=== PATIENT | female | born 1935 | race Caucasian/White ===

== ENCOUNTER 2017-11-24 20:34 | Inpatient (IN) | payer MEDICARE, OTHER ==
[2017-11-24 23:09] LABS: ADD MAN DIFF? NO
[2017-11-24 23:11] LABS: BASOPHILS % 0.5 % (0.0-2.0); EOSINOPHILS % 0.7 % (0.0-7.0); HEMATOCRIT 34.8 % (37.0-47.0); HEMOGLOBIN 11.8 g/dl (12.0-16.0); LYMPHOCYTES # 1.2 10^3/ul (0.8-2.9); LYMPHOCYTES % 28.6 % (15.0-51.0); MEAN CORPUSCULAR HEMOGLOBIN 32.1 pg (29.0-33.0); MEAN CORPUSCULAR HGB CONC 33.9 g/dl (32.0-37.0); MEAN CORPUSCULAR VOLUME 94.6 fl (82.0-101.0); MEAN PLATELET VOLUME 10.4 fl (7.4-10.4); MONOCYTE # 0.4 10^3/ul (0.3-0.9); MONOCYTES % 9.3 % (0.0-11.0); NEUTROPHIL # 2.6 10^3/ul (1.6-7.5); NEUTROPHILS % 60.7 % (39.0-77.0); PLATELET COUNT 171 10^3/UL (140-415); RED BLOOD COUNT 3.68 10^6/ul (4.20-5.40); RED CELL DISTRIBUTION WIDTH 13.6 % (11.5-14.5)
[2017-11-24 23:11] LABS: WHITE BLOOD COUNT 4.3 10^3/ul (4.8-10.8)
[2017-11-24] MEDS: ONDANSETRON 4 MG INJ IV (23:35)
[2017-11-24] MEDS: morphine 4 MG/ML VIAL IV (23:35)
[2017-11-24] MEDS: SOD CHLORIDE 0.9% 500 ML IV (23:35)
[2017-11-24 23:36] LABS: LACTIC ACID 1.5 mmol/L (0.5-2.0)
[2017-11-24 23:38] LABS: ALANINE AMINOTRANSFERASE 365 IU/L (13-69); ALBUMIN 4.3 g/dl (3.3-4.9); ALBUMIN/GLOBULIN RATIO 1.19; ALKALINE PHOSPHATASE 324 IU/L (42-121); ANION GAP 14 (8-16); ASPARTATE AMINO TRANSFERASE 567 IU/L (15-46); BILIRUBIN,INDIRECT 0.4 mg/dl (0-1.1); BILIRUBIN,TOTAL 0.4 mg/dl (0.2-1.3); BLOOD UREA NITROGEN 12 mg/dl (7-20); CARBON DIOXIDE 28 mmol/L (21-31); CHLORIDE 105 mmol/L (97-110); CREATININE 0.66 mg/dl (0.44-1.00); GLUCOSE 117 mg/dl (70-220); LIPASE 199 U/L (23-300); POTASSIUM 3.3 mmol/L (3.5-5.1); SODIUM 144 mmol/L (135-144); TOTAL PROTEIN 7.9 g/dl (6.1-8.1)
[2017-11-25 00:14] LABS: ADD UMIC YES; UR AMORPHOUS CRYSTAL FEW /HPF (NONE SEEN); UR ASCORBIC ACID NEGATIVE (NEGATIVE); UR BACTERIA FEW /HPF (NONE SEEN); UR BILIRUBIN (Dip) NEGATIVE (NEGATIVE); UR BLOOD (Dip) NEGATIVE (NEGATIVE); UR CLARITY CLOUDY (CLEAR); UR COLOR YELLOW (YELLOW); UR GLUCOSE (Dip) NEGATIVE (NEGATIVE); UR KETONES (Dip) NEGATIVE (NEGATIVE); UR LEUKOCYTE ESTERASE (Dip) 1+ Leu/ul (NEGATIVE); UR NITRITE (Dip) NEGATIVE (NEGATIVE); UR RBC 0 /HPF (0-5); UR SPECIFIC GRAVITY (Dip) 1.004 (1.003-1.030); UR TOTAL PROTEIN (Dip) NEGATIVE (NEGATIVE); UR UROBILINOGEN (Dip) NEGATIVE (NEGATIVE); UR WBC 11 /HPF (0-5)
[2017-11-25] MEDS: PIPER-TAZO 3.375 GM IV (PMX) 100 ML IVPB ×3 (02:23→20:57)
[2017-11-25] MEDS ORDERED: ALBUTEROL/IPRATROPIUM (NEB) 3 ML AMP HHN (03:00)
[2017-11-25] MEDS ORDERED: NACL 0.9% 3 ML SYG IV (03:00)
[2017-11-25] MEDS: ONDANSETRON 4 MG INJ IV (03:30)
[2017-11-25] MEDS: morphine 2 MG INJ IV (03:30)
[2017-11-25] MEDS: DEXTROSE 5%-0.45% NACL 1,000 ML IV (03:31)
[2017-11-25 06:05] LABS: ADD MAN DIFF? NO
[2017-11-25 06:11] LABS: ABNORMAL IP MESSAGE 1; BASOPHILS % 0.2 % (0.0-2.0); EOSINOPHILS % 0.2 % (0.0-7.0); HEMATOCRIT 30.2 % (37.0-47.0); HEMOGLOBIN 10.3 g/dl (12.0-16.0); LYMPHOCYTES # 0.5 10^3/ul (0.8-2.9); LYMPHOCYTES % 9.2 % (15.0-51.0); MEAN CORPUSCULAR HEMOGLOBIN 32.2 pg (29.0-33.0); MEAN CORPUSCULAR HGB CONC 34.1 g/dl (32.0-37.0); MEAN CORPUSCULAR VOLUME 94.4 fl (82.0-101.0); MEAN PLATELET VOLUME 10.6 fl (7.4-10.4); MONOCYTE # 0.8 10^3/ul (0.3-0.9); MONOCYTES % 13.3 % (0.0-11.0); NEUTROPHIL # 4.4 10^3/ul (1.6-7.5); NEUTROPHILS % 76.8 % (39.0-77.0); PLATELET COUNT 137 10^3/UL (140-415); RED CELL DISTRIBUTION WIDTH 13.6 % (11.5-14.5)
[2017-11-25 06:11] LABS: WHITE BLOOD COUNT 5.7 10^3/ul (4.8-10.8)
[2017-11-25 06:35] LABS: ALANINE AMINOTRANSFERASE 344 IU/L (13-69); ALBUMIN 3.2 g/dl (3.3-4.9); ALBUMIN/GLOBULIN RATIO 1.03; ALKALINE PHOSPHATASE 306 IU/L (42-121); ANION GAP 11 (8-16); ASPARTATE AMINO TRANSFERASE 527 IU/L (15-46); BILIRUBIN,INDIRECT 0.7 mg/dl (0-1.1); BILIRUBIN,TOTAL 0.7 mg/dl (0.2-1.3); BLOOD UREA NITROGEN 10 mg/dl (7-20); CALCIUM 8.1 mg/dl (8.4-10.2); CARBON DIOXIDE 27 mmol/L (21-31); CHLORIDE 109 mmol/L (97-110); CREATININE 0.69 mg/dl (0.44-1.00); GLUCOSE 140 mg/dl (70-220); MAGNESIUM 1.7 mg/dl (1.7-2.5); PHOSPHORUS 2.5 mg/dl (2.5-4.9); POTASSIUM 3.2 mmol/L (3.5-5.1); SODIUM 144 mmol/L (135-144); TOTAL PROTEIN 6.3 g/dl (6.1-8.1)
[2017-11-25 06:51] LABS: POSITIVE DIFF @See below
[2017-11-25] MEDS ORDERED: CEFAZOLIN 1 GM INJ (07:00)
[2017-11-25] MEDS ORDERED: LIDOCAINE 2% (SDV) 5 ML INJ (07:00)
[2017-11-25] MEDS: POTASSIUM CHLORIDE 100 ML IVPB ×2 (09:20→11:23)
[2017-11-25] MEDS: D5W-0.45 NACL + KCL 30 MEQ 1,000 ML IV ×2 (11:23→21:44)
[2017-11-25 13:38] LABS: INR 1.01; PROTIME 13.4 Sec (11.9-14.9)
[2017-11-25] MEDS ORDERED: PROPOFOL 100 ML (15:20)
[2017-11-25] MEDS ORDERED: FENTAnyl 50 MCG/ML VIAL ×2 (15:22→17:13)
[2017-11-25] MEDS ORDERED: ROCURONIUM 50 MG INJ (15:22)
[2017-11-25] MEDS ORDERED: EPINEPHrine 1 MG INJ (15:26)
[2017-11-25] MEDS ORDERED: DEXAMETHASONE 4 MG/ML 1 ML INJ (15:40)
[2017-11-25] MEDS ORDERED: KETOROLAC 30 MG INJ (15:41)
[2017-11-25] MEDS ORDERED: ONDANSETRON 4 MG INJ (15:42)
[2017-11-25] MEDS: LIDOCAINE 1% (MPF) 30 ML INJ (16:18)
[2017-11-25] MEDS: BUPIVACAINE 0.25% (MPF) 30 ML INJ (16:18)
[2017-11-25] MEDS ORDERED: SODIUM CL BACTERIOSTATIC 30 ML INJ (16:43)
[2017-11-25] MEDS: IOHEXOL 300MG/ML 30 ML BTL ×2 (16:48→17:42)
[2017-11-25] MEDS ORDERED: IOHEXOL 300MG/ML 30 ML BTL (17:22)
[2017-11-25] MEDS ORDERED: hydrALAzine 20 MG INJ IV (17:30)
[2017-11-25] MEDS ORDERED: DIPHENHYDRAMINE 50 MG INJ IV (17:30)
[2017-11-25] MEDS ORDERED: ONDANSETRON 4 MG INJ IV (17:30)
[2017-11-25] MEDS ORDERED: KETOROLAC 30 MG INJ IV (17:30)
[2017-11-25] MEDS ORDERED: MEPERIDINE 25 MG INJ IV (17:30)
[2017-11-25] MEDS ORDERED: EPHEDrine SULFATE 50 MG/5 ML SYG IV (17:30)
[2017-11-25] MEDS ORDERED: HYDROmorphONE (0.2 MG/ML) 10ML SYG IV ×3 (17:30)
[2017-11-25] MEDS ORDERED: METOCLOPRAMIDE 10 MG INJ IV (17:30)
[2017-11-25] MEDS ORDERED: FENTAnyl 50 MCG/ML VIAL IV ×3 (17:30)
[2017-11-25] MEDS ORDERED: LABETALOL HCL 20MG INJ IV (17:30)
[2017-11-25] MEDS ORDERED: OXYCODONE/ACETAMINOPHEN (5/325) TAB PO ×2 (17:30)
[2017-11-25] MEDS ORDERED: SUGAMMADEX SODIUM 200 MG/2 ML VIAL IV (17:48)
[2017-11-25] MEDS ORDERED: morphine 2 MG INJ IV (18:00)
[2017-11-25] MEDS ORDERED: HYDROCODONE/APAP (5/325) TAB PO ×2 (18:00)
[2017-11-26 05:00] LABS: ADD MAN DIFF? NO
[2017-11-26] MEDS: PIPER-TAZO 3.375 GM IV (PMX) 100 ML IVPB ×3 (05:05→18:37)
[2017-11-26 05:06] LABS: ABNORMAL IP MESSAGE 1; BASOPHILS % 0.1 % (0.0-2.0); HEMATOCRIT 34.1 % (37.0-47.0); HEMOGLOBIN 11.7 g/dl (12.0-16.0); LYMPHOCYTES # 0.4 10^3/ul (0.8-2.9); LYMPHOCYTES % 3.5 % (15.0-51.0); MEAN CORPUSCULAR HEMOGLOBIN 32.3 pg (29.0-33.0); MEAN CORPUSCULAR HGB CONC 34.3 g/dl (32.0-37.0); MEAN CORPUSCULAR VOLUME 94.2 fl (82.0-101.0); MEAN PLATELET VOLUME 10.6 fl (7.4-10.4); MONOCYTE # 0.5 10^3/ul (0.3-0.9); MONOCYTES % 4.6 % (0.0-11.0); NEUTROPHIL # 9.4 10^3/ul (1.6-7.5); NEUTROPHILS % 91.4 % (39.0-77.0); PLATELET COUNT 146 10^3/UL (140-415); RED BLOOD COUNT 3.62 10^6/ul (4.20-5.40); RED CELL DISTRIBUTION WIDTH 13.7 % (11.5-14.5)
[2017-11-26 05:06] LABS: WHITE BLOOD COUNT 10.3 10^3/ul (4.8-10.8)
[2017-11-26 05:10] LABS: POSITIVE DIFF @See below
[2017-11-26 05:32] LABS: MAGNESIUM 1.7 mg/dl (1.7-2.5)
[2017-11-26 05:32] LABS: PHOSPHORUS 2.2 mg/dl (2.5-4.9)
[2017-11-26 05:34] LABS: ALANINE AMINOTRANSFERASE 313 IU/L (13-69); ALBUMIN 3.5 g/dl (3.3-4.9); ALBUMIN/GLOBULIN RATIO 0.94; ALKALINE PHOSPHATASE 313 IU/L (42-121); ANION GAP 17 (8-16); ASPARTATE AMINO TRANSFERASE 301 IU/L (15-46); BILIRUBIN,INDIRECT 0.6 mg/dl (0-1.1); BILIRUBIN,TOTAL 0.6 mg/dl (0.2-1.3); BLOOD UREA NITROGEN 6 mg/dl (7-20); CALCIUM 8.5 mg/dl (8.4-10.2); CARBON DIOXIDE 21 mmol/L (21-31); CHLORIDE 113 mmol/L (97-110); CREATININE 0.61 mg/dl (0.44-1.00); GLUCOSE 182 mg/dl (70-220); POTASSIUM 3.8 mmol/L (3.5-5.1); SODIUM 147 mmol/L (135-144); TOTAL PROTEIN 7.2 g/dl (6.1-8.1)
[2017-11-26] MEDS: morphine 2 MG INJ IV ×2 (10:47→20:42)
[2017-11-26] MEDS: D5W-0.45 NACL + KCL 30 MEQ 1,000 ML IV ×3 (11:48→20:41)
[2017-11-26] MEDS ORDERED: MAGNESIUM SULFATE 2 GM/50 ML 50 ML IVPB (12:30)
[2017-11-26] MEDS: AMLODIPINE 2.5 MG TAB PO (22:10)
[2017-11-26] MEDS: ATORVASTATIN 10 MG TAB PO (22:15)
[2017-11-27] MEDS: PIPER-TAZO 3.375 GM IV (PMX) 100 ML IVPB ×3 (00:45→16:16)
[2017-11-27 05:11] LABS: ADD MAN DIFF? NO
[2017-11-27 05:19] LABS: BASOPHILS % 0.1 % (0.0-2.0); EOSINOPHILS % 0.1 % (0.0-7.0); HEMATOCRIT 31.2 % (37.0-47.0); HEMOGLOBIN 10.6 g/dl (12.0-16.0); LYMPHOCYTES # 1.5 10^3/ul (0.8-2.9); LYMPHOCYTES % 19.3 % (15.0-51.0); MEAN CORPUSCULAR HEMOGLOBIN 32.4 pg (29.0-33.0); MEAN CORPUSCULAR VOLUME 95.4 fl (82.0-101.0); MEAN PLATELET VOLUME 11.2 fl (7.4-10.4); MONOCYTE # 0.8 10^3/ul (0.3-0.9); MONOCYTES % 9.4 % (0.0-11.0); NEUTROPHIL # 5.6 10^3/ul (1.6-7.5); NEUTROPHILS % 70.8 % (39.0-77.0); PLATELET COUNT 144 10^3/UL (140-415); RED BLOOD COUNT 3.27 10^6/ul (4.20-5.40)
[2017-11-27 05:30] LABS: ALANINE AMINOTRANSFERASE 202 IU/L (13-69); ALBUMIN 3.1 g/dl (3.3-4.9); ALBUMIN/GLOBULIN RATIO 1.14; ALKALINE PHOSPHATASE 226 IU/L (42-121); ANION GAP 15 (8-16); ASPARTATE AMINO TRANSFERASE 110 IU/L (15-46); BILIRUBIN,INDIRECT 0.4 mg/dl (0-1.1); BILIRUBIN,TOTAL 0.4 mg/dl (0.2-1.3); BLOOD UREA NITROGEN 5 mg/dl (7-20); CALCIUM 8.2 mg/dl (8.4-10.2); CARBON DIOXIDE 24 mmol/L (21-31); CHLORIDE 112 mmol/L (97-110); CREATININE 0.59 mg/dl (0.44-1.00); GLUCOSE 120 mg/dl (70-220); POTASSIUM 3.9 mmol/L (3.5-5.1); SODIUM 147 mmol/L (135-144); TOTAL PROTEIN 5.8 g/dl (6.1-8.1)
[2017-11-27 05:33] LABS: MAGNESIUM 1.7 mg/dl (1.7-2.5)
[2017-11-27] MEDS: D5W-0.45 NACL + KCL 30 MEQ 1,000 ML IV ×2 (06:15→21:04)
[2017-11-27] MEDS: AMLODIPINE 2.5 MG TAB PO (08:19)
[2017-11-27] MEDS ORDERED: IOHEXOL 300MG/ML 30 ML BTL (12:56)
[2017-11-27] MEDS ORDERED: FENTAnyl 50 MCG/ML VIAL (13:24)
[2017-11-27] MEDS ORDERED: MIDAZOLAM 1 MG/ML 2 ML INJ (13:24)
[2017-11-27] MEDS: INDOMETHACIN 50 MG SUPP PR ×2 (13:30)
[2017-11-27] MEDS ORDERED: GLYCOPYRROLATE 0.4 MG INJ (14:10)
[2017-11-27] MEDS ORDERED: ETOMIDATE 20 MG INJ (14:10)
[2017-11-27] MEDS ORDERED: ONDANSETRON 4 MG INJ (14:10)
[2017-11-27] MEDS ORDERED: CEFAZOLIN 1 GM INJ (14:10)
[2017-11-27] MEDS ORDERED: LIDOCAINE 2% (SDV) 5 ML INJ (14:10)
[2017-11-27] MEDS ORDERED: NEOSTIGMINE 3 MG/3 ML SYRINGE (14:10)
[2017-11-27] MEDS ORDERED: ROCURONIUM 50 MG INJ (14:10)
[2017-11-27] MEDS ORDERED: MEPERIDINE 25 MG INJ IV (14:30)
[2017-11-27] MEDS ORDERED: HYDROmorphONE (0.2 MG/ML) 10ML SYG IV ×2 (14:30)
[2017-11-27] MEDS ORDERED: DIPHENHYDRAMINE 50 MG INJ IV (14:30)
[2017-11-27] MEDS ORDERED: METOCLOPRAMIDE 10 MG INJ IV (14:30)
[2017-11-27] MEDS ORDERED: LABETALOL HCL 20MG INJ IV (14:30)
[2017-11-27] MEDS ORDERED: ONDANSETRON 4 MG INJ IV (14:30)
[2017-11-27] MEDS ORDERED: FENTAnyl 50 MCG/ML VIAL IV (14:30)
[2017-11-27] MEDS: ONDANSETRON 4 MG INJ IV (14:43)
[2017-11-27] MEDS: ATORVASTATIN 10 MG TAB PO (20:47)
[2017-11-27] MEDS ORDERED: ATORVASTATIN 10 MG TAB PO (21:45)
[2017-11-28] MEDS: PIPER-TAZO 3.375 GM IV (PMX) 100 ML IVPB ×2 (00:49→09:04)
[2017-11-28 05:12] LABS: ADD MAN DIFF? NO
[2017-11-28 05:15] LABS: WHITE BLOOD COUNT 4.8 10^3/ul (4.8-10.8)
[2017-11-28 05:15] LABS: BASOPHILS % 0.4 % (0.0-2.0); EOSINOPHILS % 0.4 % (0.0-7.0); HEMATOCRIT 32.5 % (37.0-47.0); HEMOGLOBIN 10.9 g/dl (12.0-16.0); LYMPHOCYTES # 1.5 10^3/ul (0.8-2.9); LYMPHOCYTES % 31.4 % (15.0-51.0); MEAN CORPUSCULAR HEMOGLOBIN 32.2 pg (29.0-33.0); MEAN CORPUSCULAR HGB CONC 33.5 g/dl (32.0-37.0); MEAN CORPUSCULAR VOLUME 96.2 fl (82.0-101.0); MONOCYTE # 0.5 10^3/ul (0.3-0.9); MONOCYTES % 10.7 % (0.0-11.0); NEUTROPHIL # 2.8 10^3/ul (1.6-7.5); NEUTROPHILS % 56.9 % (39.0-77.0); PLATELET COUNT 169 10^3/UL (140-415); RED BLOOD COUNT 3.38 10^6/ul (4.20-5.40); RED CELL DISTRIBUTION WIDTH 13.9 % (11.5-14.5)
[2017-11-28 05:53] LABS: ALANINE AMINOTRANSFERASE 160 IU/L (13-69); ALBUMIN 2.9 g/dl (3.3-4.9); ALBUMIN/GLOBULIN RATIO 0.82; ALKALINE PHOSPHATASE 316 IU/L (42-121); ANION GAP 13 (8-16); ASPARTATE AMINO TRANSFERASE 87 IU/L (15-46); BILIRUBIN,INDIRECT 0.5 mg/dl (0-1.1); BILIRUBIN,TOTAL 0.5 mg/dl (0.2-1.3); BLOOD UREA NITROGEN 7 mg/dl (7-20); CALCIUM 8.5 mg/dl (8.4-10.2); CARBON DIOXIDE 24 mmol/L (21-31); CHLORIDE 114 mmol/L (97-110); CREATININE 0.73 mg/dl (0.44-1.00); GLUCOSE 116 mg/dl (70-220); POTASSIUM 3.8 mmol/L (3.5-5.1); SODIUM 147 mmol/L (135-144); TOTAL PROTEIN 6.4 g/dl (6.1-8.1)
[2017-11-28 06:08] LABS: PHOSPHORUS 2.7 mg/dl (2.5-4.9)
[2017-11-28 06:08] LABS: MAGNESIUM 1.7 mg/dl (1.7-2.5)
[2017-11-28] MEDS: D5W-0.45 NACL + KCL 30 MEQ 1,000 ML IV (09:02)
[2017-11-28] MEDS: AMLODIPINE 2.5 MG TAB PO (09:04)
[2017-11-28] MEDS: ACETAMINOPHEN 325 MG TAB PO (17:37)
== END 2017-11-28 17:55 | disposition home or self-care (01) | DRG 406 ==
LOC: E/R 20:34 → REC 11-25 02:13 → MS1 11-25 20:22
PROC: 0FT44ZZ Resection of Gallbladder, Percutaneous Endoscopic Approach (ICD-10-PCS; principal; 2017-11-25 15:32)
PROC: 0FB04ZZ Excision of Liver, Percutaneous Endoscopic Approach (ICD-10-PCS; 2017-11-25 15:32)
PROC: 0FC98ZZ Extirpation of Matter from Common Bile Duct, Via Natural or Artificial Opening Endoscopic (ICD-10-PCS; 2017-11-25 15:32)
PROC: 0F798DZ Dilation of Common Bile Duct with Intraluminal Device, Via Natural or Artificial Opening Endoscopic (ICD-10-PCS; 2017-11-25 15:32)
DX: K80.11 Calculus of gallbladder with chronic cholecystitis with obstruction (principal); N39.0 Urinary tract infection, site not specified; D69.6 Thrombocytopenia, unspecified; K76.89 Other specified diseases of liver; K80.50 Calculus of bile duct without cholangitis or cholecystitis without obstruction; R79.89 Other specified abnormal findings of blood chemistry; K80.20 Calculus of gallbladder without cholecystitis without obstruction; I10 Essential (primary) hypertension; E78.5 Hyperlipidemia, unspecified; J44.9 Chronic obstructive pulmonary disease, unspecified; D64.9 Anemia, unspecified
CPT/HCPCS: 36415; 71045; 74176; 74300; 74330; 80053; 81001; 83605; 83690; 83735; 84100; 85025; 85610; 87086; 88304; 88307; 88313; 96374; 96375; 96376; 99217; 99285-25